=== PATIENT | male | born 1985 ===

== ENCOUNTER 2023-01-31 08:56 | Emergency (ER) | payer SELFPAY ==
[~2023-01-31] VITALS: Ht 165.1 cm; Wt 99.8 kg
[2023-01-31] MEDS ORDERED: CILOXAN 5 ML5 ML OPH (09:11)
== END 2023-01-31 09:25 | disposition home or self-care (01) ==
LOC: ED 08:56
DX: H10.9 Unspecified conjunctivitis (principal)

== ENCOUNTER 2024-06-07 22:57 | Emergency (ER) | payer SELFPAY ==
[~2024-06-07] VITALS: Ht 165.1 cm; Wt 86.2 kg
[~2024-06-07 22:57] MED LIST: CILOXAN 5 ML5 ML OPH
[2024-06-07] MEDS ORDERED: Ondansetron Hydrochloride 4 MG/2 ML VIAL IV ONE (23:25)
[2024-06-07] MEDS ORDERED: SODIUM CHLORIDE 0.9% 1,000 ML IV ONE (23:25)
[2024-06-08] MEDS ORDERED: Ondansetron4 MG PO (01:19)
== END 2024-06-08 01:46 | disposition home or self-care (01) ==
LOC: ED 22:57
DX: B34.9 Viral infection, unspecified (principal); Z20.822 Contact with and (suspected) exposure to COVID-19; R11.2 Nausea with vomiting, unspecified; R19.7 Diarrhea, unspecified